=== PATIENT | female | born 2000 | race Caucasian/White ===

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

== ENCOUNTER 2019-05-04 16:10 | Emergency (ER) | payer BC ==
--- NOTE | 2019-05-04 16:33 | UC ---
Respiratory Complaint HPI - HPI Summary HPI Summary: Patient is 19 year old female, who present today to the urgent care with cough and sore throat for past 5 days. She reports that she has been having intermittent cough and sore throat for past 1 month. Earlier in April she was diagnosed with strep pharyngitis and treated with antibiotics and symptoms improved but then she began symptomatic again 5 days ago. Pt was seen at school [facility] for strep throat and tested negative. Pt states since then her throat is more sore and swollen and she is coughing, nasal congestion, nausea, body hurts. Also reports that and of March she was exposed to mononucleosis from her roommate. Has subjective fevers, cough productive of sputum/ Denies any chest pain or shortness of breath . Denies any abdominal pain , nausea or vomiting , diarrhea or constipation. - History of Current Complaint Stated Complaint: COUGH/SORE THROAT Time Seen by Provider: 05/04/19 16:31 Hx Obtained From: Patient Hx Last Menstrual Period: 04/25/19 ?: No - Allergies/Home Medications Allergies/Adverse Reactions: Allergies Allergy/AdvReac Type Severity Reaction Status Date / Time No Known Allergies Allergy Verified 05/04/19 16:38 Home Medications: Home Medications Amoxicillin PO (*) [Amoxicillin 500 MG CAP*] 500 mg PO TID 7 Days #21 cap [Rx] Norethindrone AC-Eth Estradiol [03/25] 1 tab PO DAILY 05/04/19 [History Confirmed 05/04/19] predniSONE [Prednisone 20 MG TAB] 40 mg PO DAILY 5 Days #10 tablet 05/04/19 [Rx] PMH/Surg Hx/FS Hx/Imm Hx - Additional Past Medical History Additional PMH: Past Medical History : ADD Past Surgical History: No Past History of Procedure Family History : non contributory for pulmonary problems. Social History : Occasional alcohol, non smoker, marijuana use. student at [employer] Previously Healthy: Yes - Surgical History Surgical History: None - Family History Known Family History: Positive: Other - no related fh., Non-Contributory Negative: Respiratory Disease - Social History Alcohol Use: Weekly Substance Use Type: Marijuana Substance Use Comment - Amount & Last Used: less than monthly Smoking Status (MU): Never Smoked Tobacco - Immunization History Most Recent Influenza Vaccination: Not the 2016/2017 Season Vaccination Up to Date: Yes Review of Systems All Other Systems Reviewed And Are Negative: Yes Constitutional: Positive: Fever, Fatigue Skin: Positive: Negative Eyes: Positive: Negative ENT: Positive: Sore Throat Respiratory: Positive: Cough - productive Cardiovascular: Positive: Negative Gastrointestinal: Positive: Negative Genitourinary: Positive: Negative Motor: Positive: Negative Neurovascular: Positive: Negative Musculoskeletal: Positive: Negative Neurological/Mental Status: Positive: Negative Psychological: Positive: Negative Is Patient Immunocompromised?: No Physical Exam - Summary Physical Exam Summary: Physical Exam: Const: Appears well. No signs of apparent distress present. Alert and oriented x 3. Musculo: Walks with a normal gait. Head/Face: Atraumatic, normocephalic on inspection. Eyes: EOMI and PERRLA in both eyes. Conjunctivae clear. No discharge noted ENT: Hearing normal, TM normal appearing bilaterally, non bulging , non erythematous . No tenderness to palpation on maxillary and frontal sinus. pharyngeal erythema with tonsillar exudates . Uvula is midline. there is cervical lymphadenopathy noted. Respiratory: Respirations are unlabored. Lungs clear to auscultation bilaterally, no wheezing , rhonchi or rales noted . CVS: Regular rate and Rhythm, S1S2 normal , no murmurs identified. Extremities: Peripheral circulation is grossly normal. Pulses 2+ Abdomen : Soft non tender , nondistended , Bowel sounds present . No guarding , rebound tenderness or rigidity noted. Skin: No lesions or rash located on the upper extremities or on the lower extremities. Neuro: Cranial nerves II to XII intact, motor and sensory intact. DTR Intact bilaterally. Mood is normal. Affect is normal. Triage Information Reviewed: Yes Vital Signs Reviewed: Yes Respiratory Course/Dx - Course Course Of Treatment: flu test is neg Monospot ordered, lab pending . We discussed further treatment options and his symptoms appears to be either viral or related to mononucleosis. She is here with mom and she is concerned about treating with antibiotics. We discussed that we can prescribe antibiotics since this has been going on for a long time but in viral illness antibiotics do not help .She wants to wait until the test results for mono. I have prescribed prednisone and amoxicillin to be filled after the test results are available. If Monospot is negative she can take amoxicillin . If Monospot is positive she can take prednisone to alleviate symptoms and should not fill amoxicillin. Advised her supportive treatment for mononucleosis- maintain hydration, Tylenol or ibuprofen as needed for fever. Salt water gargles will be helpful. - Differential Dx/Diagnosis Provider Diagnosis: Viral upper respiratory illness Discharge ED - Sign-Out/Discharge Documenting (check all that apply): Patient Departure All imaging exams completed and their final reports reviewed: No Studies - Discharge Plan Condition: Stable Disposition: HOME Prescriptions: Amoxicillin PO (*) [Amoxicillin 500 MG CAP*] 500 mg PO TID 7 Days #21 cap predniSONE [Prednisone 20 MG TAB] 40 mg PO DAILY 5 Days #10 tablet Patient Education Materials: Mononucleosis (ED), Pharyngitis (ED), Viral Syndrome (ED) Referrals: No Primary Care Phys,NOPCP [Primary Care Provider] - Additional Instructions: You have tested negative for flu. I have prescribed prednisone and amoxicillin to be filled after the test results are available. If Monospot is negative you can take amoxicillin . If Monospot is positive you can take prednisone to alleviate symptoms. supportive treatment for mononucleosis- maintain hydration, Tylenol or ibuprofen as needed for fever. Salt water gargles will be helpful. Follow up with [facility] in 2 days . Patients blood pressure slightly high in Urgent care today in prehypertensive range , plan follow up with PCP for better control Return to Urgent care / ER if symptoms get worse. - Billing Disposition and Condition Condition: STABLE Disposition: Home
[2019-05-04 16:38] VITALS: BP 131/64
[2019-05-04 16:58] LABS: Influenza A Molecular Negative (Negative); Influenza B Molecular Negative (Negative)
--- NOTE | 2019-05-06 07:08 | UC ---
- Progress Note Progress Note: Monospot was negative. This does not mean you do not have mononucleosis. If you are still having symptoms and are feeling unwell, recommend follow up with PCP or return to urgent care. Do not recommend taking prednisone because of a negative monospot. Course/Dx - Diagnoses Provider Diagnoses: Viral upper respiratory illness Discharge ED - Sign-Out/Discharge Documenting (check all that apply): Post-Discharge Follow Up All imaging exams completed and their final reports reviewed: No Studies - Discharge Plan Condition: Stable Disposition: HOME Prescriptions: Amoxicillin PO (*) [Amoxicillin 500 MG CAP*] 500 mg PO TID 7 Days #21 cap predniSONE [Prednisone 20 MG TAB] 40 mg PO DAILY 5 Days #10 tablet Patient Education Materials: Mononucleosis (ED), Pharyngitis (ED), Viral Syndrome (ED) Referrals: No Primary Care Phys,NOPCP [Primary Care Provider] - - Billing Disposition and Condition Condition: STABLE Disposition: Home
== END 2019-05-04 17:23 | disposition home or self-care (01) ==
LOC: UCCORT 16:10
DX: B34.9 Viral infection, unspecified (principal); J39.9 Disease of upper respiratory tract, unspecified; R53.83 Other fatigue; R05 Cough; J02.9 Acute pharyngitis, unspecified; F98.8 Other specified behavioral and emotional disorders with onset usually occurring in childhood and adolescence
CPT/HCPCS: 36415; 86308; 99212; G0463